=== PATIENT | male | born 1945 | race Caucasian/White ===

== ENCOUNTER 2020-04-02 18:13 | Emergency (ER) | payer MEDICARE, OTHER, SELFPAY ==
--- NOTE | 2020-04-02 18:42 | DI.RAD.S_ITS ---
PROCEDURE: XR SHOULDER LT MIN 2V INDICATIONS: arm pain TECHNIQUE: Three views of the shoulder were acquired. COMPARISON: None. FINDINGS: Bones: There is a distal clavicle fracture with impaction which is of questionable acuity. No dislocation There is a healed bowing deformity of the mid left clavicle with bridging callus present. Degenerative changes at the acromioclavicular joint are present. There are deformities of remote left 5th, 6th, 7th, 8th, and 9th rib fractures. No suspicious bony lesions. Visualized ribs appear intact. Soft tissues: No suspicious soft tissue calcifications. IMPRESSION: 1. Questionable impaction fracture of the distal clavicle. 2. Healed mid clavicle fracture and multiple left rib fractures. 3. No glenohumeral joint dislocation. Dictated by: Leanne Munguia M.D. on 04/02/2020 at 19:35 Approved by: Leanne Munguia M.D. on 04/02/2020 at 19:38
[2020-04-02 18:43] VITALS: BP 150/68; PULSE 81; RESP 14; TEMP 36.9; O2SAT 99; BMI 22.1
--- NOTE | 2020-04-02 18:47 | ED.GENADULT ---
HPI - General Adult General Chief complaint: Extremity Injury, Upper Stated complaint: fall, left shoulder injury Time Seen by Provider: 04/02/20 18:42 Source: patient Mode of arrival: Ambulatory Limitations: no limitations History of Present Illness HPI narrative: Patient is a 75-year-old male. Not on anticoagulation here for evaluation of injuries that he sustained after he stated that he fell off of a step stool landing on his left shoulder. He did not hit his head. There was no loss of conscious. No neck pain. He states that he was on a slight incline at the time of should not not have been on the stool. Unsure exactly how he landed but did feel like he landed on his left shoulder. Arrived in a bandage type sling. No wrist pain or elbow pain. States that all of the pain is on the top in front of his left shoulder. Related Data Previous Rx's Medication Instructions Recorded atorvastatin [Lipitor] 20 mg PO HS #90 tab 10/02/16 lisinopril 5 mg PO QAM #90 tab 10/02/16 lorazepam 0.5 mg PO SEE INSTRUCTIONS #30 tab 10/02/16 ranitidine HCl 150 mg PO QDAY #90 tab 10/02/16 tamsulosin [Flomax] 0.4 mg PO QDAY #90 cap 10/02/16 acetaminophen-codeine 1 tab PO Q4HP PRN #20 tab 02/03/17 doxycycline hyclate 100 mg PO BID #14 cap 02/03/17 hydrocodone-acetaminophen [Gurdon] 1 tab PO Q4-6H PRN #10 tab 04/02/20 Allergies Allergy/AdvReac Type Severity Reaction Status Date / Time amoxicillin [AMOXICILLIN] Allergy Intermediate HIVES Verified 04/02/20 19:21 cefaclor [CEFACLOR] Allergy Intermediate HIVES Verified 04/02/20 19:21 Review of Systems Constitutional Constitutional: Denies fever(s) and Denies weakness Cardiovascular Cardiovascular: Denies chest pain and Denies dyspnea Respiratory Respiratory: Denies dyspnea Gastrointestinal Gastrointestinal: Denies abdominal pain, Denies nausea and Denies vomiting Musculoskeletal Comments: Left shoulder pain Integumentary/Breasts Skin/Breast: Denies lesions and Denies rash Neurologic Neurologic: Denies behavioral changes, Denies memory loss and Denies weakness Psychiatric Psychiatric: Denies behavioral changes and Denies memory loss Hematologic/Lymphatic Hematologic/Lymphatic: Denies easy bleeding and Denies easy bruising Allergic/Immunologic Allergic/Immunologic: Denies urticaria Patient History Medical History Benign prostatic hyperplasia (08/22/15) Constipation (Inactive) Essential hypertension (08/22/15) Left bundle branch block (LBBB) (08/22/15) Mixed hyperlipidemia (08/22/15) Social History Smoking Status: Never smoker Exam Initial Vital Signs Initial Vital Signs: Vital Signs Temperature 98.4 F 04/02/20 18:43 Pulse Rate 81 04/02/20 18:43 Respiratory Rate 14 04/02/20 18:43 Blood Pressure 150/68 H 04/02/20 18:43 Pulse Oximetry 99 04/02/20 18:43 Const General: cooperative and comfortable HENMT Head: normal to inspection and normocephalic Chest Chest: No crepitus and No tenderness Resp Effort & Inspection: normal respiratory effort Auscultation: clear to auscultation bilaterally Cardio Rate: regular rate Rhythm: regular rhythm Pulses: radial pulses present on the left Skin Lesions: no lesions Rashes: no rashes Neuro General: patient alert and patient awake Cognition: normal cognition Speech: speech normal Sensory Exam: no sensory deficits noted Extrem Other: Right hand wrist forearm elbow and upper arm unremarkable. Patient is able to flex and extend at the elbow and the wrist and pronate and supinate without problems. He is able to abduct however with adduction had pain in the anterior portion of his shoulder. No crepitus felt. No anterior chest pain. Psych Appearance: grossly normal and well kempt Procedures Orthopedic Splinting/Casting Injury #1: Side: left Upper Extremity Injury Location: shoulder Upper Extremity Immobilizer: sling/shoulder immobilizer Post splinting neuro exam: no change Post splinting vascular exam: no change Placed by: Nursing Course Orders Ordered: ED Orders 04/02/20 18:42 XR shoulder LT min 2V Stat Discontinued Medications Hydrocodone Bitart/Acetaminophen (Gurdon 5/325) 1 tab PO NOW ONE Stop: 04/02/20 19:20 Last Admin: 04/02/20 19:26 Dose: 1 tab Documented by: SUNNY Hydrocodone Bitart/Acetaminophen (Vicodin 5/325 Prepack) 1 bottle MISC SEEINSTR ONE Stop: 04/02/20 19:20 Last Admin: 04/02/20 19:26 Dose: 1 bottle Documented by: SUNNY Vital Signs Vital signs: Vital Signs - 8 hr 04/02/20 18:43 Temperature 98.4 F Pulse Rate 81 Respiratory Rate 14 Blood Pressure 150/68 H Pulse Oximetry 99 Medical Decision Making Imaging Data Extremity x-ray #1: Radiologist's Impression: [address] [address] XRay Report Signed Patient: Olayinka Cortes JMR#: [id number] : 7Acct:[id number] Age/Sex: 75 / MDate of Service: 04/02/20 Loc: ED Accession Number: [id number] Procedure: XR shoulder LT min 2V Ordering Provider: Isai Faulkner D.O. PROCEDURE: XR SHOULDER LT MIN 2V INDICATIONS: arm pain TECHNIQUE: Three views of the shoulder were acquired. COMPARISON: None. FINDINGS: Bones: There is a distal clavicle fracture with impaction which is of questionable acuity. No dislocation There is a healed bowing deformity of the mid left clavicle with bridging callus present. Degenerative changes at the acromioclavicular joint are present. There are deformities of remote left 5th, 6th, 7th, 8th, and 9th rib fractures. No suspicious bony lesions. Visualized ribs appear intact. Soft tissues: No suspicious soft tissue calcifications. IMPRESSION: 1. Questionable impaction fracture of the distal clavicle. 2. Healed mid clavicle fracture and multiple left rib fractures. 3. No glenohumeral joint dislocation. Dictated by: Leanne Munguia M.D. on 04/02/2020 at 19:35 Approved by: Leanne Munguia M.D. on 04/02/2020 at 19:38 [facility] Narrative Medical decision making narrative: Patient states that he has broken his clavicle in the past but he thinks it was on the right side. He does not remember any prior left clavicle fracture. He states that he has broken his ribs on the past. He has no tenderness over the ribs on the left side today. I feel that the rib fracture seen on the x-ray are old. The distal clavicle fracture seen on today's x-ray does fit his history and physical. Had an extensive discussion with him regarding his sling and pain control. We did discuss early mobilization. Give him follow-up with Orthopedics. This will send home with pain medication. He is given return precautions. He expressed understanding and agreement. Discharge Plan Departure Patient Disposition: Home Clinical Impression: Fracture of clavicle Qualifiers: Encounter type: initial encounter Clavicle location: lateral end Fracture type: closed Fracture alignment: nondisplaced Laterality: left Qualified Code(s): S42.035A - Nondisplaced fracture of lateral end of left clavicle, initial encounter for closed fracture Instructions: How to Use a Sling, DI for Clavicle Fracture-Adult, How To Perform RICE (Rest, Ice, Compress, Elevate) Activity Restrictions/Additional Instructions: Use the sling as needed for pain control at night. You can take it off to shower. I do recommend that you are out of it most of the day like we discussed. Recommend you contact the [facility] group at [phone] for follow-up. Also recommend you contact your primary provider to schedule follow-up and also for referral to see physical therapy. Return to the emergency department for any new or worsening symptoms. Prescriptions: New hydrocodone-acetaminophen [Gurdon] 5-325 mg tablet 1 tab PO Q4-6H PRN (Reason: pain) Qty: 10 RF: 0 No Action atorvastatin [Lipitor] 20 MG tablet 20 mg PO HS Qty: 90 RF: 3 lorazepam 0.5 MG tablet 0.5 mg PO SEE INSTRUCTIONS Qty: 30 RF: 1 tamsulosin [Flomax] 0.4 MG capsule,extended release 24hr 0.4 mg PO QDAY Qty: 90 RF: 3 ranitidine HCl 150 MG tablet 150 mg PO QDAY Qty: 90 RF: 3 lisinopril 5 MG tablet 5 mg PO QAM Qty: 90 RF: 3 doxycycline hyclate 100 MG capsule 100 mg PO BID Qty: 14 RF: 0 acetaminophen-codeine 30 MG/300 MG tablet 1 tab PO Q4HP PRNQty: 20 RF: 0 Referrals: Andre Geiger MD [Primary Care Provider] -
[2020-04-02] MEDS: HYDROCODONE/ACET 5/325 TABLET 1 TAB PO (19:26)
[2020-04-02] MEDS: HYDROCODONE/ACET 5/325 PREPACK 1 BOTTLE MISC (19:26)
[2020-04-02 20:01] VITALS: BP 167/79; PULSE 80; RESP 18; O2SAT 99
== END 2020-04-02 20:03 | disposition home or self-care (01) ==
PROVIDERS: Emergency Provider Emergency Medicine; Family Provider Family Medicine; PCP Family Medicine
DX: S42.035A Nondisplaced fracture of lateral end of left clavicle, initial encounter for closed fracture (principal); W19.XXXA Unspecified fall, initial encounter
CPT/HCPCS: 73030; 99283

== ENCOUNTER 2024-05-10 10:52 | Emergency (ER) | payer MEDICARE, OTHER, SELFPAY ==
[2024-05-10 11:19] VITALS: BP 137/66; PULSE 89; RESP 18; TEMP 37.1; O2SAT 98; BMI 23.9
[2024-05-10 11:43] LABS: Appearance Urine UA CLEAR; Bilirubin Urine UA NEGATIVE (NEGATIVE); Color Urine UA YELLOW; Glucose Urine UA NEGATIVE (Negative); Ketones Urine UA NEGATIVE (NEGATIVE); Leukocyte Esterase Urine UA TRACE (NEGATIVE); Nitrite Urine UA NEGATIVE (Negative); Occult Blood Urine UA 3+ (Negative); Protein Urine UA 2+ (Negative); Specific Gravity Urine UA >=1.030 (1.000-1.035); Urobilinogen Urine UA 0.2 E.U./dL (0.2)
[2024-05-10 11:45] LABS: Urine Volume 10mL (spun)
[2024-05-10 11:49] LABS: Bacteria Urine None Seen; Mucus Urine 2+ (Negative); RBC Urine 5-10/HPF (0-5/HPF); Squamous Epithelial Cell Urine None Seen (0-5/HPF); WBC Urine 1-5/HPF (0-5/HPF)
[2024-05-10 11:50] LABS: Culture Indicated Urine Specimen Cultured
[2024-05-10] MEDS: LIDOCAINE 2% (GLYDO) 6 ML GEL TOP (13:21)
[2024-05-10 13:51] VITALS: BP 134/64
--- NOTE | 2024-05-10 13:52 | ED.MALEGU ---
HPI - Male Genitourinary General Chief complaint: Urogenital-Male Stated complaint: Can't pee very very painful Time Seen by Provider: 05/10/24 11:29 Source: patient Mode of arrival: Ambulatory History of Present Illness HPI Narrative: 79-year-old male with past medical history prostate cancer, status post pacemaker presents to the ED with 2 days of urinary retention. Patient states that he had a prostate biopsy 1 week ago, following which he was seeing some blood in the urine which he was told to expect. Patient states that about mid day yesterday he started having difficulty urinating, which worsened overnight. Patient complains of suprapubic discomfort. Patient had a bout of diarrhea this morning but was unable to urinate. Patient has been on Levaquin every other day as prescribed by his urologist as a routine precaution after the biopsy. Patient has 1 more dose that is due tomorrow. Patient states he has had some all-over aches and pains and nausea. Patient attributes this to Levaquin and endorses having similar symptoms in the past when he had Levaquin. Patient denies fever, chills, vomiting, flank pain, chest pain, shortness of breath. Related Data Previous Rx's Medication Instructions Recorded atorvastatin 20 mg tablet (Lipitor) 20 mg PO HS #90 tabs 10/02/16 lisinopril 5 mg tablet 5 mg PO QAM #90 tabs 10/02/16 lorazepam 0.5 mg tablet 0.5 mg PO SEE INSTRUCTIONS #30 tabs 10/02/16 ranitidine HCl 150 mg tablet 150 mg PO QDAY #90 tabs 10/02/16 tamsulosin 0.4 mg capsule (Flomax) 0.4 mg PO QDAY #90 caps 10/02/16 acetaminophen 300 mg-codeine 30 mg 1 tab PO Q4HP PRN #20 tabs 02/03/17 tablet doxycycline hyclate 100 mg capsule 100 mg PO BID #14 caps 02/03/17 hydrocodone 5 mg-acetaminophen 325 1 tab PO Q4-6H PRN pain #10 tabs 04/02/20 mg tablet (Norcatur) levofloxacin 750 mg tablet 750 mg PO Q24H 7 days #7 tabs 05/10/24 Allergies Allergy/AdvReac Type Severity Reaction Status Date / Time amoxicillin [AMOXICILLIN] Allergy Intermediate HIVES Verified 04/02/20 19:21 cefaclor [CEFACLOR] Allergy Intermediate HIVES Verified 04/02/20 19:21 Review of Systems Constitutional Constitutional: Reports body ache(s), Denies chills, Denies fatigue, Denies fever(s), Denies frequent falls, Denies lethargy and Denies weakness Eyes Eyes: Denies change in vision, Denies eye discharge, Denies irritation and Denies loss of vision ENT Ears, Nose, Mouth, and Throat: Denies change in voice, Denies dizziness, Denies neck pain, Denies sore throat and Denies throat swelling Cardiovascular Cardiovascular: Denies chest pain, Denies irregular heart rhythm, Denies lightheadedness, Denies palpitations, Denies dyspnea, Denies dyspnea on exertion and Denies orthopnea Respiratory Respiratory: Denies cough, Denies dyspnea, Denies dyspnea on exertion and Denies wheezing Gastrointestinal Gastrointestinal: Denies abdominal pain, Denies change in bowel habits, Denies diarrhea, Reports nausea and Denies vomiting Genitourinary Genitourinary: Reports difficulty urinating Musculoskeletal Musculoskeletal: Denies neck pain and Denies numbness Integumentary/Breasts Skin/Breast: Denies pruritus, Denies erythema, Denies rash and Denies wounds Neurologic Neurologic: Denies behavioral changes, Denies confusion, Denies dizziness, Denies frequent falls, Denies loss of vision, Denies numbness and Denies weakness Psychiatric Psychiatric: Denies anxiety, Denies behavioral changes, Denies confusion, Denies depression, Denies homicidal ideation and Denies suicidal ideation Endocrine Endocrine: Denies fatigue, Denies flushing and Denies palpitations Hematologic/Lymphatic Hematologic/Lymphatic: Denies easy bruising Allergic/Immunologic Allergic/Immunologic: Denies urticaria, Denies throat swelling and Denies wheezing Patient History Medical History Mixed hyperlipidemia (08/22/15) Left bundle branch block (LBBB) (08/22/15) Essential hypertension (08/22/15) Benign prostatic hyperplasia (08/22/15) Constipation Social History Smoking Status: Never smoker Smoking Status: Never smoker alcohol intake frequency: 0-2 drinks per day Substance Use Type: does not use Exam Narrative Exam Narrative: Const General:?cooperative, healthy appearing and comfortable [facility] Head:?normal to inspection Ears:?hearing grossly normal bilaterally Nose:?external nose normal Face and sinus:?normal facial exam and sinuses nontender Mouth:?oral mucosae normal Throat:?posterior oropharynx normal Eyes General:?appearance normal, both eyes and all related structures Neck Neck:?normal visual inspection and no lymphadenopathy noted Resp Effort & Inspection:?normal respiratory effort Auscultation:?clear to auscultation bilaterally Cardio Rate:?regular rate Rhythm:?regular rhythm GI/ Abdomen is soft, nondistended, nontender to palpation. exam deferred. Neuro General:?patient alert, patient awake and patient oriented x3 Initial Vital Signs Initial Vital Signs: Vital Signs Temperature 98.8 F 05/10/24 11:19 Pulse Rate 89 05/10/24 11:19 Respiratory Rate 18 05/10/24 11:19 Blood Pressure 137/66 05/10/24 11:19 Pulse Oximetry 98 05/10/24 11:19 Oxygen Delivery Method Room Air 05/10/24 11:19 Course Orders Ordered: ED Orders 05/10/24 11:24 Urinalysis and Microscopic Stat Urine Culture Stat Discontinued Medications Lidocaine HCl (Lidocaine 2% (Glydo) 6 Ml Gel) 6 ml TOP NOW ONE Stop: 05/10/24 13:16 Last Admin: 05/10/24 13:21 Dose: 6 ml Documented By: CTS Vital Signs Vital signs: Vital Signs - 8 hr 05/10/24 11:19 05/10/24 13:51 Temperature 98.8 F Pulse Rate 89 Respiratory Rate 18 Blood Pressure 137/66 134/64 Pulse Oximetry 98 Oxygen Delivery Method Room Air MDM - Male Genitourinary Lab Data Labs: Lab Results 05/10/24 Range/Units 11:24 Urine Color Yellow Urine Appearance Clear Urine pH 6.0 (4.5-8.0) Ur Specific [place] >=1.030 H (1.000-1.035) Urine Protein 2+ H (Negative) Urine Glucose (UA) Negative (Negative) g/dL Urine Ketones Negative (NEGATIVE) Urine Occult Blood 3+ H (Negative) Urine Nitrate Negative (Negative) Urine Bilirubin Negative (NEGATIVE) Urine Urobilinogen 0.2 (0.2) E.U./dL Ur Leukocyte Esterase Trace H (NEGATIVE) Urine RBC 5-10/hpf H (0-5/HPF) Urine WBC 1-5/hpf (0-5/HPF) Ur Squamous Epith Cells None seen (0-5/HPF) Urine Bacteria None seen (None) Urine Mucus 2+ H (Negative) Ur Culture Indicated? Specimen cultured Vol Urine Centrifuged 10ml (spun) MDM Narrative Medical decision making narrative: 79-year-old male with past medical history prostate cancer, status post pacemaker presents to the ED with 2 days of urinary retention. Concern for urinary retention versus UTI versus pyelonephritis versus other. Bladder scan showed 500-600 mL of retained urine. Stewart catheter was placed with good drainage. Patient experienced significant relief with the catheter. UA was obtained which shows some leukocyte esterase but no WBCs. It is possible that patient might be developing a UTI in the light of the urine retention. Will extend patient's Levaquin prescription. Patient agrees to follow-up with his urologist as soon as possible. ED return precautions were discussed with patient. Patient verbalized understanding. Medical records reviewed: Yes Discharge Plan Departure Patient Disposition: Home Clinical Impression: Acute retention of urine Instructions: DI for Urinary Retention in Men Activity Restrictions/Additional Instructions: You were evaluated in the ED today for inability to urinate. A bladder scan did show that you were retaining a significant amount of urine. A Stewart catheter has been placed which will allow your bladder to continue draining. Your urine showed some leukocyte esterase, however no white count. Your antibiotic prescription has been renewed for another 7 days. Please follow-up with your urologist as soon as possible. Return to the ED if you have worsening symptoms. Prescriptions: New levofloxacin 750 mg tablet 750 mg PO Q24H 7 Days Qty: 7 0RF No Action atorvastatin [Lipitor] 20 MG tablet 20 mg PO HS Qty: 90 3RF lorazepam 0.5 MG tablet 0.5 mg PO SEE INSTRUCTIONS Qty: 30 1RF tamsulosin [Flomax] 0.4 MG capsule,extended release 24hr 0.4 mg PO QDAY Qty: 90 3RF ranitidine HCl 150 MG tablet 150 mg PO QDAY Qty: 90 3RF lisinopril 5 MG tablet 5 mg PO QAM Qty: 90 3RF doxycycline hyclate 100 MG capsule 100 mg PO BID Qty: 14 0RF acetaminophen-codeine 30 MG/300 MG tablet 1 tab PO Q4HP PRNQty: 20 0RF hydrocodone-acetaminophen [Norcatur] 5-325 mg tablet 1 tab PO Q4-6H PRN (Reason: pain) Qty: 10 0RF Stand Alone Forms: Patient Portal/API
== END 2024-05-10 13:51 | disposition home or self-care (01) ==
PROVIDERS: Emergency Medicine; Emergency Provider Student in an Organized Health Care Education/Training Program; Family Provider Family Medicine
DX: R33.8 Other retention of urine (principal); R10.9 Unspecified abdominal pain; Z95.0 Presence of cardiac pacemaker; Z85.46 Personal history of malignant neoplasm of prostate
CPT/HCPCS: 51798; 81001; 87086; 99283

== ENCOUNTER → 2025-06-05 13:02 | Outpatient (CLI) | payer MEDICARE, OTHER, SELFPAY ==
[2025-06-05 14:15] LABS: Influenza A - CEPHEID Flu A NEGATIVE (NEGATIVE); Influenza B - CEPHEID Flu B NEGATIVE (NEGATIVE)
[2025-06-05 14:18] LABS: COVID-19 CEPHEID 4-PLEX PCR Negative (Negative)
== END ==
PROVIDERS: Visit Provider Chiropractor
DX: R05.9 Cough, unspecified (principal)
CPT/HCPCS: 87637